=== PATIENT | female | born 1970 | race Caucasian/White ===

== ENCOUNTER → 2016-07-05 | Outpatient (CLI) | payer BC ==
--- NOTE | 2016-07-07 11:03 | DX ---
DEXA Bone Densitometry Technique: DEXA scan was performed on Raise5 Discovery W Bone Densitometer Indication: Osteoporosis Comparator Study: January 2015 Results: Lumbar Spine BMD: 0.724 T-score: -2.9 Prior BMD: 0.701 % change: +3.4% Total Hip (Right) BMD: 0.758 T-score: -1.5 Prior BMD: 0.706 % Change: +7.4% Femoral Neck (Right) BMD: 0.580 T-score: -2.4 Total Hip (Left) BMD: 0.722 T-score: -1.8 Prior BMD: 0.682 % change: +5.8% Femoral Neck (Left) BMD: 0.584 T-score: -2.4 CONCLUSION: Osteoporosis In comparison to prior study from January 2015 the patient's measured BMD in the lumbar spine and hip regions have increased significantly ADDITIONAL COMMENTS: By FRAX calculation, the estimated 10 year risk of any osteoporotic fracture is 6.8%. The estimated 1 0 year risk of hip fracture is 2.0%. This patient's bone mineral density is unexpectedly low compared with healthy age, sex, and race matched controls. Consider evaluation for secondary causes of bone loss. Consider repeating the study in 2 years NOTE: The risk of osteoporotic fractures increases approximately twofold for each 1.0 SD decrease in T-score. The T-score represents the standard deviations from a young normal, same sex, reference po pulation. Low bone density is not the only risk factor for fracture. Clinical factors to consider include fall risk, previous osteoporotic fractures, family history of fractures, smoking, and low body weight. Patients who have an unexpectedly low BMD may need to be evaluated for secondary causes of low bone m ineral density. In comparing the present study to a prior study, lack of a significant increase or decrease in BMD ma y signify efficacy of the patient's present treatment. Bone mineral density measurements performed with densitometers produced by different manufacturers ar e not comparable. For the most reproducible BMD measurement, subsequent exams should be performed on the same densitometer.
== END ==
LOC: BMCIMAGING 14:36
PROVIDERS: ATTEND Internal Medicine Endocrinology, Diabetes & Metabolism
DX: M81.0 Age-related osteoporosis without current pathological fracture (principal)

== ENCOUNTER → 2016-07-13 | Outpatient (CLI) | payer OTHER ==
--- NOTE | 2016-07-13 15:56 | DX ---
Thoracic spine upright AP and lateral 1400 hours. History: Follow-up compression fracture. Mid back pain. Findings: Comparison to January 16, 2016. There is stable moderate anterior wedge compression fracture superior endplate of T7. No new compress ion fractures are identified. There is stable mild to moderate intervertebral disk space narrowing at T4-T5 and at T5-T6 with associated marginal osteophytes. The remainder of the disk spaces appear to be normal. There are no new lytic or sclerotic osseous lesions. There is stable mild dextroscoliosis mid to lower thoracic spine. Impression: 1. Stable moderate anterior wedge compression fracture superior endplate of T7. 2. Stable mild to moderate degenerative disk disease with marginal osteophytes at T4-T5 and at T5-T6.
== END ==
LOC: CIMAGING 13:49
PROVIDERS: ATTEND Physical Medicine & Rehabilitation
DX: M54.6 Pain in thoracic spine (principal); S22.060D Wedge compression fracture of T7-T8 vertebra, subsequent encounter for fracture with routine healing; M51.34 Other intervertebral disc degeneration, thoracic region; M25.78 Osteophyte, vertebrae
CPT/HCPCS: 72072-PO

== ENCOUNTER 2016-10-24 15:40 | Emergency (ER) | payer BC, OTHER ==
[2016-10-24 15:47] VITALS: RESP 18
--- NOTE | 2016-10-24 15:49 | EDPHY ---
H & P Stated Complaint: c/oLt sided neck pain since Saturday - had inc pain after PT. HPI/ROS: HPI CHIEF COMPLAINT: Neck pain HISTORY OF PRESENT ILLNESS: This patient very pleasant 45-year-old female, she has an oncology nurse at [facility], she has been undergoing physical therapy and strengthening since she sustained a T5 and T7 vertebral body fracture. States approximately 2 days ago she developed left-sided neck pain it is described as sharp stabbing, the goes from her left lateral neck down her shoulder she does not have pain down to the hand she denies weakness of her pneumatic jack operator strength or weakness of her arm. She describes as sharp stabbing coming in waves left neck into her left shoulder. No trauma. She is unsure exactly when this started. She tells me that happened over the past 48 hours she has been doing exercises at home to help with her back including shoulder exercises. Does not remembered neck trauma. She did not have a fever. Does not have headache. Does not have numbness or tingling or weakness anywhere. Past Medical History: Anxiety, anorexia, T5 and T7 vertebral body fracture Past Surgical History: No recent surgical history Social History: Denies daily use drugs alcohol tobacco products Family History: Noncontributory ROS REVIEW OF SYSTEMS: A comprehensive 10 point review of systems is otherwise negative aside from elements mentioned in the history of present illness. Exam Constitutional triage nursing summary reviewed, vital signs reviewed, awake/ alert. Eyes normal conjunctivae and sclera, EOMI, PERRLA. HENT normal inspection, atraumatic, moist mucus membranes, no epistaxis, neck supple/ no meningismus, no raccoon eyes. Respiratory clear to auscultation bilaterally, normal breath sounds, no respiratory distress, no wheezing. Cardiovascular rate normal, regular rhythm, no murmur, no edema, distal pulses normal. Gastrointestinal soft, non-tender, no rebound, no guarding, normal bowel sounds, no distension, no pulsatile mass. Genitourinary no CVA tenderness. Musculoskeletal specifically normal pneumatic jack operator strength on the left, normal strength of the arm, axillary nerve intact. Nontender palpation of the cervical spine. no midline vertebral tenderness, full range of motion, no calf swelling, no tenderness of extremities, no meningismus, good pulses, neurovascularly intact. Skin pink, warm, & dry, no rash, skin atraumatic. Neurologic awake, alert and oriented x 3, AAOx3, moves all 4 extremities equally, motor intact, sensory intact, CN II-XII intact, normal cerebellar, normal vision, normal speech. Psychiatric normal mood/affect. Heme/Lymph/Immune no lymphadenopathy. Differential Diagnosis: Includes but is not limited to in a particular order cervical radiculopathy, annular tear, nerve root compression, compression fracture Medical Decision Making: This patient has no signs of acute cauda equina syndrome there is no arm weakness no abnormality of her pneumatic jack operator strength. Sensation intact. She does have what is described as cervical radiculopathy pain down the left neck left shoulder. No trauma. I went over discussion about imaging modalities she declined x-ray or CT scan she is requesting MRI of her cervical spine however unfortunately do not have MRI available. I offered her to go over to [facility] for MRI however she has declined. She would like referral Neurosurgery which I will refer her to. She does understand to return to the emergency room she develops arm weakness, trouble with pneumatic jack operator sensation abnormalities or worsening pain. Will place her on Escalon for pain control, ibuprofen, Zofran for nausea, prednisone burst, Valium for muscle relaxation. She is agreeable for this plan. Source: Patient - Personal History LMP (Females 10-55): 22-28 Days Ago Current Tetanus Diphtheria and Acellular Pertussis (TDAP): No Tetanus Vaccine Date: unsure - Medical/Surgical History Hx Asthma: No Hx Chronic Respiratory Disease: No Hx Diabetes: No Hx Cardiac Disease: No Hx Renal Disease: No Hx HIV/AIDS: No Hx Splenectomy or Spleen Trauma: No Other PMH: recovering from anorexia, genl anxiety disorder, osteoporsis. rt kneearthroscopy. T5 - T7 compression fracture. - Social History Smoking Status: Never smoked Constitutional: Initial Vital Signs Temperature (C) 36.6 C 10/24/16 15:43 Heart Rate 95 10/24/16 15:43 Respiratory Rate 18 10/24/16 15:43 O2 Sat (%) 98 10/24/16 15:43 O2 Delivery Mode Room Air Allergies/Adverse Reactions: No Known Allergies Allergy (Verified 01/16/16 15:04) Home Medications: Medication Instructions Recorded Lamictal 04/13/13 Cymbalta 11/15/14 Lunesta 01/16/16 GABAPENTIN 10/24/16 Hydrocodone/APAP 5/325 [Escalon 1 - 2 tab PO Q4H PRN #20 tab 10/24/16 5/325] Ibuprofen [Motrin (*)] 800 mg PO Q6-8PRN #14 tab 10/24/16 Ondansetron HCl [Zofran] 4 mg PO Q4-6PRN PRN #10 tablet 10/24/16 predniSONE 60 mg PO DAILY #15 tab 10/24/16 Departure - Departure Disposition: Home, Routine, Self-Care Clinical Impression: Cervical radiculopathy Condition: Good Instructions: Neck Pain (ED), Cervical Radiculopathy (ED), Cervical Disc Herniation (ED), Acute Neck Pain (ED) Additional Instructions: 1. Please return to the emergency room if you have worsening pain would recommend you to the main emergency room at [facility] for MRI. 2. Please follow up with neurosurgery call their for an appointment. Referrals: Nadja Ramos MD [Primary Care Provider] - As per Instructions Ed Contreras MD [Medical Doctor] - As per Instructions Prescriptions: Hydrocodone/APAP 5/325 [Escalon 5/325] 1 - 2 tab PO Q4H PRN #20 tab PRN Reason: Pain, Moderate Ibuprofen [Motrin (*)] 800 mg PO Q6-8PRN #14 tab Ondansetron HCl [Zofran] 4 mg PO Q4-6PRN PRN #10 tablet PRN Reason: Nausea/Vomiting, Use 1st predniSONE 60 mg PO DAILY #15 tab
[2016-10-24 16:20] VITALS: PULSE 95; TEMP 98; O2SAT 98
== END 2016-10-24 16:35 | disposition home or self-care (01) ==
LOC: CED 15:40
DX: M54.12 Radiculopathy, cervical region (principal)

== ENCOUNTER → 2016-11-23 | Outpatient (CLI) | payer BC | LOC: FIMAGING 19:24 | PROVIDERS: ATTEND Neurological Surgery | DX: M54.12 Radiculopathy, cervical region (principal) ==

== ENCOUNTER → 2018-06-26 | Outpatient (CLI) | payer BC | LOC: FIMAGING 10:25 | PROVIDERS: ATTEND Internal Medicine Endocrinology, Diabetes & Metabolism | DX: Z13.820 Encounter for screening for osteoporosis (principal); M81.0 Age-related osteoporosis without current pathological fracture ==